=== PATIENT | female | born 1965 | race Caucasian/White ===

== ENCOUNTER 2019-07-09 09:09 | Inpatient (IN) ==
[2019-07-09] MEDS ORDERED: NS 1,000 ML IV ONE (09:35)
[2019-07-09] MEDS ORDERED: NARCAN IV ONE (09:35)
[2019-07-09] MEDS ORDERED: NARCAN 4 MG in NS 250 ML IV SCH (10:00)
--- NOTE | 2019-07-09 10:10 | EKG Report ---
Test Performed on : 07/09/2019 09:38:17 AM Test Reason : tachycardia Blood Pressure : / mmHG Vent. Rate : 118 BPM Atrial Rate : 118 BPM P-R Int : 166 ms QRS Dur : 072 ms QT Int : 320 ms P-R-T Axes : 066 037 046 degrees QTc Int : 448 ms Sinus tachycardia. Possible Left atrial enlargement Borderline ECG When compared with ECG of 03-AUG-2017 17:39, No significant change was found Unconfirmed Result
[2019-07-09 10:41] LABS: BE 4.9 mmoll (-3.0-3.0); BLOOD TYPE ARTERIAL; HCO3-(ACT) 28.7 mmoll (20.0-26.0); METHB 0.8 % (0.0-1.5); O2(CT) 15.4 mL/dL (15.0-23.0); O2HB 95.7 % (95.0-99.0); PCO2(98.6) 48 mmHg (35-45); PO2(98.6) 84 mmHg (60-100); SAMPLE BLOOD; SAO2 99.1 % (95.0-100.0); THB 11.4 g/dL (11.5-17.4); pH(98.6) 7.41 (7.35-7.45)
[2019-07-09 10:42] LABS: BASO# 0.04 X1000 (0.0-0.2); BASO% 0.2 % (0.0-0.8); EOS# 0.01 X1000 (0.0-0.7); EOS% 0.1 % (0.0-10.0); HEMATOCRIT 35.3 % (37.0-47.0); HEMOGLOBIN 11.2 g/dL (12.0-16.0); IMM GRAN# 0.03 X1000 (0.0-0.04); IMM GRAN% 0.2 % (0.0-0.5); LYMPH# 1.69 X1000 (1.2-3.4); LYMPH% 10.1 % (20.5-51.1); MCH 29.3 PG (27-31); MCHC 31.7 g/dL (33-37); MCV 92.4 FL (81-99); MONO# 1.43 X1000 (0.11-0.59); MONO% 8.5 % (1.7-9.3); MPV 9.8 FL (7.4-10.4); NEUT% 80.9 % (42.2-75.2); PLT 240 X1000 (130-400); RBC 3.82 XMIL (4.2-5.4); RDW 12.9 % (11.5-14.5)
[2019-07-09 10:44] LABS: ALLEN TEST YES; MODALITY ROOM AIR
[2019-07-09 11:13] LABS: ACETAMINOPHEN < 1.2 ug/mL (10-30); AGAP 11; ALKALINE PHOSPHATASE 106 U/L (32-104); BUN 22 mg/dL (8-22); CALCIUM 8.7 mg/dL (8.8-10.2); CHLORIDE 108 mmol/L (98-107); COSMO 303; CREATININE 0.7 mg/dL (0.5-0.9); ESTIMATED GFR > 60; GLUCOSE 160 mg/dL (70-104); GOT 17 U/L (10-30); GPT 21 U/L (10-36); SALICYLATES < 3.00 mg/dL (3-10); SODIUM 149 mmol/L (136-145); TCO2 30 mmol/L (25-35); TOTAL PROTEIN 6.9 g/dL (6.3-8.3)
--- NOTE | 2019-07-09 11:24 | Diag Imaging Result Doc PS360 ---
EXAM: CT HEAD W/O CONTRAST - 07/09/2019 HISTORY: ams TECHNIQUE: CT head without contrast COMPARISON: 02/05/2014 FINDINGS: There is no evidence of intracranial hemorrhage, mass effect, midline shift, or hydrocephalus. There is no evidence of infarct, although acute infarcts may not be immediately visible. There is no evidence of skull fracture. Visualized portions of paranasal sinuses and mastoid air cells appear clear. IMPRESSION: No visible acute intracranial abnormality. No hemorrhage or mass effect. This exam was performed using automated exposure control, adjustment of mA or kV according to patient size, and/or use of iterative reconstruction technique. Electronically signed by Buddy Engel 07/09/2019 11:22 AM
--- NOTE | 2019-07-09 11:26 | Diag Imaging Result Doc PS360 ---
EXAM: CHEST-PORTABLE - 07/09/2019 HISTORY: ams TECHNIQUE: Portable chest COMPARISON: 08/03/2017 FINDINGS: Heart size is normal. Inspiration is slightly shallow. The lungs appear essentially clear. There is mild skinfold artifact over the left base. There is no pleural effusion or pneumothorax identified. IMPRESSION: Slightly shallow inspiration. No other evidence of acute disease. Electronically signed by Buddy Engel 07/09/2019 11:24 AM
[2019-07-09 11:57] LABS: BILIRUBIN URINE NEGATIVE (NEGATIVE); BLOOD URINE 4+ (NEGATIVE); CLARITY VERY CLOUDY (CLEAR); COLOR YELLOW; GLUCOSE URINE NEGATIVE (NEGATIVE); KETONE URINE TRACE mg/dL (NEGATIVE); LEUKOCYTES URINE 2+ (NEGATIVE); NITRITE URINE NEGATIVE (NEGATIVE); PH URINE 6.5; PROTEIN URINE 1+(30 mg/dL) mg/dL (NEGATIVE); UROBILINOGEN URINE NORMAL
[2019-07-09 12:06] LABS: URINE BACTERIA 1+ /HFP; URINE EPITHELIAL CELLS <10 /HPF (<10); URINE RBC 20-40 /HPF (<10); URINE SOURCE CLEAN CATCH
[2019-07-09] MEDS ORDERED: KLOR-CON PO ONE (12:09)
[2019-07-09] MEDS ORDERED: ROCEPHIN 2 GM in NS 50 ML IV ONE (12:09)
[2019-07-09 12:16] LABS: UR AMPHETAMINES QUAL PRESUMPTIVE POSITIVE (NONE DETECT); UR BARBITUATES QUAL NONE DETECTED (NONE DETECT); UR BENZODIAZEPIN QUAL NONE DETECTED (NONE DETECT); UR CANNABINOIDS QUAL NONE DETECTED (NONE DETECT); UR COCAINE QUAL NONE DETECTED (NONE DETECT); UR METHADONE QUAL NONE DETECTED (NONE DETECT); UR METHAMPHETAMINE QUAL PRESUMPTIVE POSITIVE (NONE DETECT); UR OPIATES QUAL PRESUMPTIVE POSITIVE (NONE DETECT); UR OXYCODONE QUAL NONE DETECTED (NONE DETECT); UR PCP QUAL NONE DETECTED (NONE DETECT); UR PROPOXYPHENE QUAL NONE DETECTED (NONE DETECT); UR TCA QUAL NONE DETECTED (NONE DETECT)
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
[2019-07-09] MEDS ORDERED: ZOFRAN IV PRN (15:05)
[2019-07-09 17:35] LABS: AGAP 13; ALBUMIN 3.6 g/dL (3.5-5.0); ALKALINE PHOSPHATASE 101 U/L (32-104); BUN 16 mg/dL (8-22); CALCIUM 8.7 mg/dL (8.8-10.2); CHLORIDE 105 mmol/L (98-107); COSMO 285; CREATININE 0.5 mg/dL (0.5-0.9); ESTIMATED GFR > 60; GLUCOSE 107 mg/dL (70-104); GOT 20 U/L (10-30); GPT 20 U/L (10-36); MAGNESIUM 1.7 mg/dL (1.5-2.7); POTASSIUM 3.9 mmol/L (3.5-5.1); SODIUM 142 mmol/L (136-145); TCO2 24 mmol/L (25-35); TOTAL PROTEIN 6.6 g/dL (6.3-8.3)
[2019-07-09] MEDS: ZOSYN 3.375 GM in NS 50 ML IV SCH ×2 (18:01→23:17)
[2019-07-09] MEDS: NS 1,000 ML IV SCH (18:01)
[2019-07-09] MEDS: TYLENOL PO PRN (18:17)
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
[2019-07-10] MEDS: TYLENOL PO PRN (00:15)
[2019-07-10] MEDS: ZOSYN 3.375 GM in NS 50 ML IV SCH (05:00)
[2019-07-10] MEDS: NS 1,000 ML IV SCH ×2 (05:21→22:52)
[2019-07-10 05:59] LABS: HEMATOCRIT 30.7 % (37.0-47.0); HEMOGLOBIN 9.2 g/dL (12.0-16.0); MCH 28.4 PG (27-31); MCV 94.8 FL (81-99); MPV 10.1 FL (7.4-10.4); RBC 3.24 XMIL (4.2-5.4); RDW 12.9 % (11.5-14.5); WBC 5.16 X1000 (4.8-10.8)
--- NOTE | 2019-07-10 11:57 | Diag Imaging Result Doc PS360 ---
CHEST-2 VIEWS - 07/10/2019 INDICATION: hypoxia COMPARISON: 07/09/2019 FINDINGS: Lung volumes are much improved. There is a focal nodular opacity in the posterior segment of the right upper lobe. This is ill-defined. Heart size is normal. No pneumothorax or pleural effusion. IMPRESSION: Right upper lobe infiltrate or mass. Recommend short-term imaging follow-up or else a chest CT. Electronically signed by Kirk Thacker 07/10/2019 11:55 AM
--- NOTE | 2019-07-10 13:50 | PROGRESS NOTE ---
DATE: 07/10/2019 SUBJECTIVE: The patient is much more awake and alert today. She is in no distress. OBJECTIVE: Vitals: Temperature 99, pulse 80, respiratory rate 15, BP 150/87. General: The patient is awake. She is pleasant. She is in no respiratory distress. HEENT: Normocephalic. Neck: Supple. Cardiovascular: Regular rate. No murmurs. Chest: Clear. Abdomen: Soft. Extremities: Moves all extremities. Neurologic: No focal changes. ASSESSMENT: 1. Nausea and vomiting. 2. Abdominal pain. 3. Acute hypoxic respiratory failure, resolved. 4. Opiate abuse and overuse, resolved. PLAN: We are going to continue the patient in the hospital for now. Continue to follow. We are going to stop her Narcan drip. Further orders as needed. Possibly home this afternoon, although she does appear to have a UTI. We will continue to follow culture results. cc: Willy Aparicio MD
[2019-07-10] MEDS: OMNICEF PO SCH (20:04)
[2019-07-11] MEDS: OMNICEF PO SCH (09:05)
--- NOTE | 2019-07-11 10:31 | PROGRESS NOTE ---
DATE: 07/11/2019 SUBJECTIVE: Patient denies having any acute complaints this morning and feels well. OBJECTIVE: Vital Signs: Temperature 97.9 degrees, pulse 72 per minute, respiratory rate 24 per minute, blood pressure 166/87, pulse oximetry 97% on room air. General: Patient is alert and oriented x3. She does not appear to be in any acute distress. Cardiovascular System: First and second heart sounds are audible without any murmurs or gallops. Respiratory System: No respiratory distress noted. Bilateral lung air entry is good without any rales or rhonchi. Gastrointestinal: Abdomen is soft and nondistended. Normal bowel sounds are present. DIAGNOSTIC DATA: CBC done yesterday showed a hemoglobin of 9.2 and hematocrit 30.7. Rest of the CBC is within normal limits. Comprehensive metabolic panel obtained 2 days ago on July 09 was nondiagnostic. Urinalysis done on 07/09/2019 showed 10 to 20 white blood cells per high-power field. Chest x-ray obtained 2 days ago and then yesterday on 07/10/2019 showed right upper lobe infiltrate or mass. Follow-up chest x-ray in the short term or a CT chest was recommended. ASSESSMENT: 1. Nausea, vomiting and diarrhea secondary to opioid abuse that has now resolved. 2. Urinary tract infection. 3. Right upper lung mass. 4. Anemia that appears to be chronic. PLAN: 1. I am going to obtain CT scan of the chest with contrast for further evaluation of lung mass. 2. Would switch her to levofloxacin 750 mg orally once daily for urinary tract infection. 3. Will continue to provide her supportive care and repeat labs including CBC and CMP tomorrow and establish the stability of her hemoglobin and hematocrit. 4. She can probably be transferred to the regular floor today. cc: Vivek Woodward MD
[2019-07-11] MEDS: LEVAQUIN PO SCH (11:04)
[2019-07-11] MEDS: NS 1,000 ML IV SCH ×2 (11:04→23:14)
[2019-07-11] MEDS: TYLENOL PO PRN (12:32)
[2019-07-12 06:30] LABS: BASO# 0.05 X1000 (0.0-0.2); BASO% 0.8 % (0.0-0.8); EOS# 0.12 X1000 (0.0-0.7); HEMATOCRIT 39.1 % (37.0-47.0); HEMOGLOBIN 12.3 g/dL (12.0-16.0); IMM GRAN# 0.02 X1000 (0.0-0.04); IMM GRAN% 0.3 % (0.0-0.5); LYMPH# 2.36 X1000 (1.2-3.4); LYMPH% 39.7 % (20.5-51.1); MCH 28.5 PG (27-31); MCHC 31.5 g/dL (33-37); MCV 90.7 FL (81-99); MONO# 0.57 X1000 (0.11-0.59); MONO% 9.6 % (1.7-9.3); MPV 10.1 FL (7.4-10.4); NEUT# 2.82 X1000 (1.4-6.5); NEUT% 47.6 % (42.2-75.2); PLT 249 X1000 (130-400); RBC 4.31 XMIL (4.2-5.4); RDW 12.8 % (11.5-14.5); WBC 5.94 X1000 (4.8-10.8)
[2019-07-12 07:13] LABS: AGAP 11; ALBUMIN 3.7 g/dL (3.5-5.0); ALKALINE PHOSPHATASE 99 U/L (32-104); BUN 8 mg/dL (8-22); CALCIUM 9.2 mg/dL (8.8-10.2); CHLORIDE 109 mmol/L (98-107); COSMO 288; CREATININE 0.5 mg/dL (0.5-0.9); ESTIMATED GFR > 60; GLUCOSE 112 mg/dL (70-104); GOT 14 U/L (10-30); GPT 18 U/L (10-36); POTASSIUM 3.5 mmol/L (3.5-5.1); SODIUM 145 mmol/L (136-145); TCO2 25 mmol/L (25-35)
--- NOTE | 2019-07-12 08:22 | Diag Imaging Result Doc PS360 ---
EXAM: CT THORAX W/CONTRAST HISTORY: Right upper lung mass vs infiltrate TECHNIQUE: CT chest with intravenous contrast COMPARISON: 11/28/2015 FINDINGS: No pleural effusions. No cardiomegaly. No thoracic aortic aneurysm or dissection. No enlarged mediastinal or hilar lymph nodes. There are nodular infiltrates posteriorly in the right upper lobe. No distinct mass identified. No other infiltrates. No bronchiectasis. Tiny pleural-based nodular density laterally in the left lower lobe. Old right rib fracture. Limited images through the upper abdomen reveal several calcified stones within the gallbladder. IMPRESSION: 1.Multinodular infiltrates in the right upper lobe. Follow-up films after treatment recommended. 2.Cholelithiasis This exam was performed using automated exposure control, adjustment of mA or kV according to patient size, and/or use of iterative reconstruction technique. Electronically signed by Christian Freeman 07/12/2019 8:19 AM
[2019-07-12] MEDS ORDERED: DOXYCYCLINE PO SCH (09:00)
[2019-07-12] MEDS: LEVAQUIN PO SCH (09:27)
[2019-07-12 11:22] VITALS: BP 151/83
--- NOTE | 2019-07-12 21:43 | PROGRESS NOTE ---
DATE: 07/12/2019 SUBJECTIVE: The patient notes that she is starting to feel better. Denies any fevers or chills. PHYSICAL EXAMINATION: Temperature 97, pulse 84, BP 163/90.General: Patient is awake, alert, currently in no distress. HEENT: Normocephalic. Neck: Supple. Cardiovascular: Regular rate. No murmurs. Chest: Clear. Abdomen: Soft. Extremities: Moves all extremities. ASSESSMENT: 1. Multinodular pneumonia. 2. Malignant hypertension, improved. 3. Metabolic encephalopathy, resolved. 4. Drug overdose, stable. PLAN: If the patient can ambulate, hopefully she can discharge home tomorrow on oral antibiotics with close follow-up regarding her multinodular pneumonia. cc: Willy Aparicio MD
--- NOTE | 2019-07-15 15:11 | DISCHARGE SUMMARY ---
ADMISSION DATE: 07/09/2019 DISCHARGE DATE: 07/12/2019 DISCHARGE DIAGNOSES: 1. Leukocytosis, resolved. 2. Hyponatremia, resolved. 3. Hypokalemia, resolved. 4. Hyperglycemia. 5. Hypertensive urgency, improved. 6. Urinary tract infection. 7. Multinodular lymph nodes. 8. Drug overdose without intent. CONSULTATIONS: None. PROCEDURES: None. BRIEF HOSPITAL COURSE: The patient is a pleasant female who was admitted to the hospital after having overtaken britton Hutchins [*] . She was noted to have leukocytosis. She was disoriented from the drug overdose. Subsequently was diagnosed with pneumonia and was placed on antibiotics. Her blood pressures were markedly elevated to [*] on discharge, they were much improved. On discharge, she is awake, alert. She is in no distress. She is overall feeling better. DISPOSITION: Again, we discussed with patient the perils of use and abuse. Discussed with her that she needs outpatient life counseling and drug counseling. She needs to avoid opiates. She will continue antibiotics for a total of 7 days for her pneumonia. She is to follow up outpatient with her primary care regarding her pneumonia. cc: Willy Aparicio MD
== END 2019-07-12 12:51 | disposition home or self-care (01) | DRG 917 ==
LOC: P.ED 09:09 → P.ICU 15:27 → SUATTDRO 15:27 → P.MEDSURG 07-11 11:45
PROVIDERS: ATTEND Family Medicine